=== PATIENT | female | born 1960 | race Asian ===

== ENCOUNTER → 2017-04-04 | Outpatient (CLI) | payer OTHER ==
[~2017-04-04] MED LIST: HYDR25TA PO; TELM40 PO
== END | disposition home or self-care (01) ==
LOC: EMPHLTH 12:02
PROVIDERS: ATTEND Internal Medicine
DX: R76.11 Nonspecific reaction to tuberculin skin test without active tuberculosis (principal)

== ENCOUNTER → 2020-06-16 | Outpatient (CLI) | payer OTHER ==
[~2020-06-16] MED LIST changes: +HYDR-1475 PO; -HYDR25TA PO
== END | disposition home or self-care (01) ==
LOC: RADPV 11:28
PROVIDERS: ATTEND Family Medicine
DX: M77.02 Medial epicondylitis, left elbow (principal); M25.522 Pain in left elbow; M77.12 Lateral epicondylitis, left elbow

== ENCOUNTER → 2021-04-11 | Outpatient (CLI) | payer OTHER ==
[~2021-04-11] MED LIST changes: -HYDR-1475 PO; +HYDR25TA2 PO
== END | disposition home or self-care (01) ==
LOC: RADMN 10:54
PROVIDERS: ATTEND Internal Medicine
DX: R76.11 Nonspecific reaction to tuberculin skin test without active tuberculosis (principal); M47.814 Spondylosis without myelopathy or radiculopathy, thoracic region
CPT/HCPCS: 71045

== ENCOUNTER → 2021-06-26 | Outpatient (CLI) | payer OTHER | END | disposition home or self-care (01) | LOC: RADMN 14:40 | PROVIDERS: ATTEND Family Medicine | DX: M16.11 Unilateral primary osteoarthritis, right hip (principal); M25.861 Other specified joint disorders, right knee | CPT/HCPCS: 73502 ==

== ENCOUNTER → 2023-12-03 | Outpatient (CLI) | payer OTHER | END | disposition home or self-care (01) | LOC: RADMN 10:26 | PROVIDERS: ATTEND Orthopaedic Surgery | DX: S43.422D Sprain of left rotator cuff capsule, subsequent encounter (principal); M19.012 Primary osteoarthritis, left shoulder; M75.52 Bursitis of left shoulder; M25.712 Osteophyte, left shoulder; X58.XXXD Exposure to other specified factors, subsequent encounter | CPT/HCPCS: 73221 ==